=== PATIENT | female | born 1965 | race Caucasian/White ===

== ENCOUNTER 2016-08-30 14:12 | Emergency (ER) | payer MEDICAID, MEDICARE ==
[~2016-08-30] VITALS: Ht 165.1 cm; Wt 97.0 kg
[2016-08-30] MEDS ORDERED: LIDOCAINE 1%, 20ML ONE (15:08)
[2016-08-30] MEDS ORDERED: DIPH,PERTUSS(ACELL),TET VAC/PF 0.5 ML IM-VACC ONE ×2 (15:09→15:30)
[2016-08-30] MEDS ORDERED: ONDANSETRON ODT 4 MG PO ONE (15:30)
[2016-08-30] MEDS ORDERED: LIDOCAINE 1%, 20ML SQ ONE (15:30)
[2016-08-30] MEDS ORDERED: ONDANSETRON ODT 4 MG ONE (15:47)
[2016-08-30] MEDS ORDERED: LORazepam 1MG TABLET ONE (16:09)
[2016-08-30 16:23] VITALS: BP 110/72
[2016-08-30] MEDS ORDERED: LORazepam 1MG TABLET PO ONE (16:30)
== END 2016-08-30 16:36 | disposition home or self-care (01) ==
LOC: ED 16:30
DX: L03.311 Cellulitis of abdominal wall (principal); B35.6 Tinea cruris
CPT/HCPCS: 26010; 73140; 90471; 90715; 99284; Q0162

== ENCOUNTER 2017-01-04 01:35 | Emergency (ER) | payer MEDICARE ==
[~2017-01-04] VITALS: Ht 160 cm; Wt 92.8 kg
[2017-01-04 01:38] VITALS: BP 154/109
[2017-01-04] MEDS ORDERED: LIDOCAINE 1%, 20ML INFIL ONE (02:00)
[2017-01-04] MEDS ORDERED: LIDOCAINE 1%, 20ML ONE (02:01)
== END 2017-01-04 02:55 | disposition home or self-care (01) ==
LOC: ED 02:50
DX: L02.413 Cutaneous abscess of right upper limb (principal)
CPT/HCPCS: 10060; 99283

== ENCOUNTER 2017-04-26 12:18 | Emergency (ER) | payer MEDICARE ==
[~2017-04-26] VITALS: Ht 165.1 cm; Wt 97.7 kg
[2017-04-26 13:29] VITALS: BP 140/83
[2017-04-26] MEDS ORDERED: FLUCONAZOLE 100 MG TABLET PO ONE (13:30)
== END 2017-04-26 14:18 | disposition home or self-care (01) ==
LOC: ED 14:12
DX: L02.416 Cutaneous abscess of left lower limb (principal); L02.415 Cutaneous abscess of right lower limb; L02.414 Cutaneous abscess of left upper limb; L02.413 Cutaneous abscess of right upper limb; B37.9 Candidiasis, unspecified
CPT/HCPCS: 99283

== ENCOUNTER 2017-06-22 13:33 | Inpatient (IN) | payer MEDICARE ==
[~2017-06-22] VITALS: Ht 165.1 cm; Wt 97.8 kg
[2017-06-22] MEDS ORDERED: SODIUM CHLORIDE FLUSH 10ML SYR IVF ONE (14:30)
[2017-06-22] MEDS ORDERED: VANCOMYCIN PER PHARMACY MC ONE (14:30)
[2017-06-22] MEDS ORDERED: SODIUM CHLORIDE 0.9% 1,000ML IVBOLUS ONE (14:30)
[2017-06-22] MEDS ORDERED: PHARMACOKINETIC CONSULTATION MC ONE ×2 (14:30→21:00)
[2017-06-22] MEDS ORDERED: VANCOMYCIN 1,500 MG in SODIUM CHLORIDE 0.9% 250 ML IV ONE (14:30)
[2017-06-22 14:51] LABS: BASOPHILS # (AUTO) 0.03 x10^3/uL (0-0.1); BASOPHILS % (AUTO) 0 % (0-1); EOSINOPHILS % (AUTO) 0 % (1-7); LYMPHOCYTES # (AUTO) 1.09 x10^3/uL (1-3.4); LYMPHOCYTES % (AUTO) 15 % (22-44); MD NO; MEAN CORPUSCULAR HEMOGLOBIN 28.8 pg (27.0-34.8); MEAN CORPUSCULAR HGB CONC 33.7 g/dL (32.4-35.8); MEAN CORPUSCULAR VOLUME 85.5 fL (80-100); MEAN PLATELET VOLUME 8.6 fL (7.4-10.4); MONOCYTES # (AUTO) 0.33 x10^3/uL (0.2-0.8); MONOCYTES % (AUTO) 5 % (2-9); NEUTROPHILS # (AUTO) 5.92 x10^3/uL (1.8-6.8); NEUTROPHILS % (AUTO) 80 % (42-75); PLATELET COUNT 221 x10^3/uL (130-400); RED BLOOD COUNT 3.92 x10^6/uL (3.82-5.3); RED CELL DISTRIBUTION WIDTH 13.8 % (9.6-15.2)
[2017-06-22 15:00] LABS: ALANINE AMINOTRANSFERASE 13 U/L (12-78); ALBUMIN 3.3 g/dL (3.4-5.0); ANION GAP 8 mmol/L (5-15); CALCIUM 8.7 mg/dL (8.5-10.1); CHLORIDE 102 mmol/L (98-107); CREATININE 0.79 mg/dL (0.55-1.02)
[2017-06-22 15:02] LABS: ALKALINE PHOSPHATASE 59 U/L (45-117); BILIRUBIN,TOTAL 0.5 mg/dL (0.2-1.0); TOTAL PROTEIN 7.9 g/dL (6.4-8.2)
[2017-06-22] MEDS ORDERED: QUET50TA5 PO (15:13)
[2017-06-22] MEDS ORDERED: VENL75CA PO (15:13)
[2017-06-22] MEDS ORDERED: CLON1TAB PO (15:13)
[2017-06-22] MEDS ORDERED: TRAZ100T15 PO (15:13)
[2017-06-22] MEDS ORDERED: OMNIPAQUE 350 MG/ML, 100ML BOTTLE ONE (16:52)
[2017-06-22] MEDS ORDERED: POTASSIUM CHLORIDE 20 MEQ TAB.ER.PRT PO ONE (19:00)
[2017-06-22] MEDS ORDERED: POTASSIUM CHLORIDE 20 MEQ TAB.ER.PRT ONE (19:02)
[2017-06-22] MEDS ORDERED: BISACODYL 10 MG SUPP PR PRN (19:30)
[2017-06-22] MEDS ORDERED: CEFTRIAXONE PMX 1GM/50ML 50 ML IV SCH (19:30)
[2017-06-22] MEDS ORDERED: VANCOMYCIN PER PHARMACY MC PRN (19:30)
[2017-06-22] MEDS ORDERED: POLYETHYLENE GLYCOL 17 GM PACKET PO PRN (19:30)
[2017-06-22] MEDS: NICOTINE 14MG/24 HR PATCH.TD24 TD SCH (19:30)
[2017-06-22] MEDS ORDERED: ONDANSETRON 2MG/ML, 2ML IVPush PRN (19:30)
[2017-06-22] MEDS ORDERED: CEFTRIAXONE PMX 1GM/50ML 50 ML ONE (19:45)
[2017-06-22 20:45] VITALS: BP 115/71
[2017-06-22] MEDS ORDERED: CEFTRIAXONE 1,000 MG in SODIUM CHLORIDE 0.9% 50 ML IV SCH (21:00)
[2017-06-22] MEDS ORDERED: PHARMACOKINETIC MONITORING MC PRN (21:00)
[2017-06-22] MEDS: TRAZODONE 100MG TABLET PO SCH (21:34)
[2017-06-22] MEDS: HEPARIN 5,000 UNITS/ML, 1ML SQ SCH (21:35)
[2017-06-22 22:00] VITALS: BP 115/71
[2017-06-22] MEDS: QUETIAPINE 25MG TABLET PO SCH (22:09)
[2017-06-22] MEDS: KETOROLAC 30 MG/1 ML IVPush PRN (22:09)
[2017-06-23 02:05] VITALS: BP 127/80
[2017-06-23] MEDS: VANCOMYCIN 1,500 MG in SODIUM CHLORIDE 0.9% 250 ML IV SCH ×2 (02:53→16:04)
[2017-06-23 05:14] LABS: BASOPHILS # (AUTO) 0.02 x10^3/uL (0-0.1); BASOPHILS % (AUTO) 0 % (0-1); EOSINOPHILS % (AUTO) 0 % (1-7); LYMPHOCYTES # (AUTO) 1.57 x10^3/uL (1-3.4); LYMPHOCYTES % (AUTO) 24 % (22-44); MD NO; MEAN CORPUSCULAR HEMOGLOBIN 29.4 pg (27.0-34.8); MEAN CORPUSCULAR HGB CONC 34.6 g/dL (32.4-35.8); MEAN CORPUSCULAR VOLUME 84.8 fL (80-100); MEAN PLATELET VOLUME 8.4 fL (7.4-10.4); MONOCYTES # (AUTO) 0.49 x10^3/uL (0.2-0.8); MONOCYTES % (AUTO) 8 % (2-9); NEUTROPHILS # (AUTO) 4.47 x10^3/uL (1.8-6.8); NEUTROPHILS % (AUTO) 68 % (42-75); PLATELET COUNT 195 x10^3/uL (130-400); RED BLOOD COUNT 3.91 x10^6/uL (3.82-5.3); RED CELL DISTRIBUTION WIDTH 13.8 % (9.6-15.2)
[2017-06-23 05:17] LABS: ALBUMIN 2.6 g/dL (3.4-5.0); ANION GAP 8 mmol/L (5-15); CALCIUM 8.2 mg/dL (8.5-10.1); CHLORIDE 105 mmol/L (98-107)
[2017-06-23 05:21] LABS: ALANINE AMINOTRANSFERASE 12 U/L (12-78); ALKALINE PHOSPHATASE 55 U/L (45-117); CREATININE 0.71 mg/dL (0.55-1.02); TOTAL PROTEIN 6.6 g/dL (6.4-8.2)
[2017-06-23] MEDS: HEPARIN 5,000 UNITS/ML, 1ML SQ SCH ×3 (05:30→21:19)
[2017-06-23 08:02] VITALS: BP 119/88
[2017-06-23 08:56] VITALS: BP 111/75
[2017-06-23] MEDS: VENLAFAXINE 75 MG CAP ER PO SCH (08:58)
[2017-06-23] MEDS: SENNA/DOCUSATE TABLET PO SCH (08:59)
[2017-06-23] MEDS ORDERED: QUETIAPINE 25MG TABLET PO SCH (09:00)
[2017-06-23] MEDS ORDERED: LORazepam 2 MG/ML, 1ML IVPush ONE (09:30)
[2017-06-23] MEDS: ACETAMINOPHEN 325 MG TABLET PO PRN ×2 (10:01→19:43)
[2017-06-23 14:30] VITALS: BP 125/84
[2017-06-23 18:54] VITALS: BP 124/80
[2017-06-23] MEDS: NICOTINE 14MG/24 HR PATCH.TD24 TD SCH (19:30)
[2017-06-23] MEDS: CEFTRIAXONE 1,000 MG in DEXTROSE 5% 50 ML IV SCH (19:43)
[2017-06-23] MEDS: TRAZODONE 100MG TABLET PO SCH (21:19)
[2017-06-23] MEDS: QUETIAPINE 25MG TABLET PO SCH (21:19)
[2017-06-24 00:41] VITALS: BP 122/71
[2017-06-24] MEDS: VANCOMYCIN 1,500 MG in SODIUM CHLORIDE 0.9% 250 ML IV SCH ×2 (04:20→16:16)
[2017-06-24 04:59] LABS: BASOPHILS # (AUTO) 0.04 x10^3/uL (0-0.1); BASOPHILS % (AUTO) 1 % (0-1); EOSINOPHILS # (AUTO) 0.01 x10^3/uL (0-0.4); EOSINOPHILS % (AUTO) 0 % (1-7); LYMPHOCYTES # (AUTO) 1.92 x10^3/uL (1-3.4); LYMPHOCYTES % (AUTO) 37 % (22-44); MD NO; MEAN CORPUSCULAR HEMOGLOBIN 29.2 pg (27.0-34.8); MEAN CORPUSCULAR HGB CONC 34.3 g/dL (32.4-35.8); MEAN CORPUSCULAR VOLUME 85.3 fL (80-100); MEAN PLATELET VOLUME 8.3 fL (7.4-10.4); MONOCYTES # (AUTO) 0.52 x10^3/uL (0.2-0.8); MONOCYTES % (AUTO) 10 % (2-9); NEUTROPHILS # (AUTO) 2.73 x10^3/uL (1.8-6.8); NEUTROPHILS % (AUTO) 52 % (42-75); PLATELET COUNT 191 x10^3/uL (130-400); RED BLOOD COUNT 3.94 x10^6/uL (3.82-5.3); RED CELL DISTRIBUTION WIDTH 13.6 % (9.6-15.2)
[2017-06-24 05:03] LABS: ANION GAP 7 mmol/L (5-15); CHLORIDE 106 mmol/L (98-107)
[2017-06-24 05:06] LABS: CREATININE 0.63 mg/dL (0.55-1.02)
[2017-06-24] MEDS: HEPARIN 5,000 UNITS/ML, 1ML SQ SCH ×3 (05:56→21:30)
[2017-06-24 08:30] VITALS: BP 131/84
[2017-06-24] MEDS: SENNA/DOCUSATE TABLET PO SCH (09:00)
[2017-06-24] MEDS: VENLAFAXINE 75 MG CAP ER PO SCH (10:16)
[2017-06-24 16:00] VITALS: BP 134/79
[2017-06-24 19:14] VITALS: BP 143/90
[2017-06-24] MEDS: NICOTINE 14MG/24 HR PATCH.TD24 TD SCH (19:30)
[2017-06-24] MEDS: KETOROLAC 30 MG/1 ML IVPush PRN (19:36)
[2017-06-24] MEDS: TRAZODONE 100MG TABLET PO SCH (19:36)
[2017-06-24] MEDS: CEFTRIAXONE 1,000 MG in DEXTROSE 5% 50 ML IV SCH (19:37)
[2017-06-24] MEDS: QUETIAPINE 25MG TABLET PO SCH (19:37)
[2017-06-25 00:50] VITALS: BP 135/62
[2017-06-25] MEDS: VANCOMYCIN 1,500 MG in SODIUM CHLORIDE 0.9% 250 ML IV SCH (04:18)
[2017-06-25] MEDS: HEPARIN 5,000 UNITS/ML, 1ML SQ SCH ×4 (05:30→23:59)
[2017-06-25 07:42] VITALS: BP 144/79
[2017-06-25] MEDS: SENNA/DOCUSATE TABLET PO SCH (09:00)
[2017-06-25] MEDS: CEFDINIR 300 MG CAPSULE PO SCH ×2 (09:32→19:53)
[2017-06-25] MEDS: VENLAFAXINE 75 MG CAP ER PO SCH (09:33)
[2017-06-25] MEDS: POTASSIUM CHLORIDE 20 MEQ TAB.ER.PRT PO SCH ×2 (10:29→16:03)
[2017-06-25 14:50] VITALS: BP 135/82
[2017-06-25] MEDS: NICOTINE 14MG/24 HR PATCH.TD24 TD SCH (19:30)
[2017-06-25 19:49] VITALS: BP 150/97
[2017-06-25] MEDS: QUETIAPINE 25MG TABLET PO SCH (19:53)
[2017-06-25] MEDS: KETOROLAC 30 MG/1 ML IVPush PRN (19:53)
[2017-06-25] MEDS: TRAZODONE 100MG TABLET PO SCH (19:53)
[2017-06-26 02:07] VITALS: BP 107/72
[2017-06-26 05:47] LABS: CHLORIDE 108 mmol/L (98-107)
[2017-06-26 05:55] LABS: ANION GAP 9 mmol/L (5-15); CREATININE 0.69 mg/dL (0.55-1.02)
[2017-06-26 07:07] VITALS: BP 126/77
[2017-06-26] MEDS: VENLAFAXINE 75 MG CAP ER PO SCH (07:49)
[2017-06-26] MEDS: CEFDINIR 300 MG CAPSULE PO SCH (07:49)
[2017-06-26] MEDS ORDERED: NICO-486 TD (07:50)
[2017-06-26] MEDS: SENNA/DOCUSATE TABLET PO SCH (07:50)
[2017-06-26] MEDS ORDERED: CEFD300C37 PO (11:03)
[2017-06-26] MEDS: HEPARIN 5,000 UNITS/ML, 1ML SQ SCH (13:25)
[2017-06-26 13:32] VITALS: BP 110/68
== END 2017-06-26 16:51 | disposition home or self-care (01) | DRG 602 ==
LOC: ED 14:07 → EDIP 18:51 → 3NE 20:34
PROVIDERS: ADMIT Hospitalist; ATTEND Hospitalist
DX: L03.113 Cellulitis of right upper limb (principal); E43 Unspecified severe protein-calorie malnutrition; D64.9 Anemia, unspecified; L02.413 Cutaneous abscess of right upper limb; E87.6 Hypokalemia; F15.10 Other stimulant abuse, uncomplicated; Z88.6 Allergy status to analgesic agent; Z88.0 Allergy status to penicillin; Z68.35 Body mass index [BMI] 35.0-35.9, adult; F17.210 Nicotine dependence, cigarettes, uncomplicated; F31.9 Bipolar disorder, unspecified; Z79.899 Other long term (current) drug therapy; Z86.14 Personal history of Methicillin resistant Staphylococcus aureus infection; Z97.5 Presence of (intrauterine) contraceptive device
CPT/HCPCS: 36415; 80048; 80053; 80202; 83605; 85025; 87040; 87070; 87205; 96365; 96366; 96367; J0696; J1644; J1885; J3370; Q9967; J2060; J7030; J7050

== ENCOUNTER 2017-08-14 15:52 | Emergency (ER) | payer MEDICARE ==
[~2017-08-14] VITALS: Ht 167.6 cm; Wt 89.0 kg
[~2017-08-14 15:52] MED LIST: CEFD300C37 PO; CLON1TAB PO; NICO-486 TD; QUET50TA5 PO; TRAZ100T15 PO; VENL75CA PO
[2017-08-14 16:10] VITALS: BP 105/72
== END 2017-08-14 17:06 | disposition home or self-care (01) ==
LOC: ED 17:00
DX: L03.115 Cellulitis of right lower limb (principal); Z86.14 Personal history of Methicillin resistant Staphylococcus aureus infection
CPT/HCPCS: 99283

== ENCOUNTER 2018-05-14 12:55 | Emergency (ER) | payer MEDICARE ==
[~2018-05-14] VITALS: Ht 165.1 cm; Wt 85.0 kg
[~2018-05-14 12:55] MED LIST changes: +TRAZ-137 PO; -TRAZ100T15 PO
[2018-05-14 14:11] LABS: BASOPHILS # (AUTO) 0.03 x10^3/uL (0-0.1); BASOPHILS % (AUTO) 0 % (0-1); EOSINOPHILS # (AUTO) 0.01 x10^3/uL (0-0.4); EOSINOPHILS % (AUTO) 0 % (1-7); LYMPHOCYTES # (AUTO) 1.99 x10^3/uL (1-3.4); LYMPHOCYTES % (AUTO) 20 % (22-44); MD NO; MEAN CORPUSCULAR HEMOGLOBIN 28.4 pg (27.0-34.8); MEAN CORPUSCULAR HGB CONC 33.2 g/dL (32.4-35.8); MEAN CORPUSCULAR VOLUME 85.5 fL (80-100); MEAN PLATELET VOLUME 8.6 fL (7.4-10.4); MONOCYTES # (AUTO) 0.54 x10^3/uL (0.2-0.8); MONOCYTES % (AUTO) 6 % (2-9); NEUTROPHILS # (AUTO) 7.22 x10^3/uL (1.8-6.8); NEUTROPHILS % (AUTO) 74 % (42-75); PLATELET COUNT 306 x10^3/uL (130-400); RED BLOOD COUNT 4.74 x10^6/uL (3.82-5.3); RED CELL DISTRIBUTION WIDTH 14.3 % (9.6-15.2)
[2018-05-14 14:20] LABS: ANION GAP 5 mmol/L (5-15); CALCIUM 9.1 mg/dL (8.5-10.1); CHLORIDE 104 mmol/L (98-107); CREATININE 0.86 mg/dL (0.55-1.02)
[2018-05-14 14:21] LABS: ALBUMIN 3.5 g/dL (3.4-5.0)
--- NOTE | 2018-05-14 14:52 | NUR ---
PT TO ROOM WITH RN BY WHEELCHAIR. NAD NOTED. FREQUENT COUGH. PT REPORTS COUGH X FIVE DAYS; +GREEN/YELLOW SPUTUM. DENIES FEVER/ORTHOPNEA. HX OF ARDS AND ASTHMA, DOES NOT USE INHALER AT HOME. PT SPEAKING IN FULL SENTENCES, SPO2 >90% ON RA. BP/SPO2 MONITORING IN PLACE. AWAITING FURTHER ORDERS.
[2018-05-14 15:09] VITALS: BP 118/70
--- NOTE | 2018-05-14 15:09 | NUR ---
POC IS BREATHING TX THEN DC. PT AMBULATED STEADILY TO BATHROOM. AWAITING RT FOR TREATMENT
[2018-05-14] MEDS ORDERED: ALBUTEROL/IPRATROPIUM 2.5MG/0.5MG, 3 ML ONE (15:11)
[2018-05-14] MEDS ORDERED: IBUPROFEN 600 MG TABLET ONE (15:16)
[2018-05-14] MEDS ORDERED: BENZONATATE 100 MG CAPSULE ONE (15:16)
--- NOTE | 2018-05-14 15:24 | NUR ---
PT REPORTS IMPROVEMENT IN SOB WITH BREATHING TX. PT MEDICATED PER EMAR.
[2018-05-14] MEDS ORDERED: BENZONATATE 100 MG CAPSULE PO ONE (15:30)
[2018-05-14] MEDS ORDERED: IBUPROFEN 600 MG TABLET PO ONE (15:30)
[2018-05-14] MEDS ORDERED: ALBUTEROL/IPRATROPIUM 2.5MG/0.5MG, 3 ML NPPB ONE (15:30)
--- NOTE | 2018-05-14 15:55 | NUR ---
Patient/Caregiver given discharge instructions and they have confirmed that they understand the instructions. Patient ambulatory with steady gait.
== END 2018-05-14 15:57 | disposition home or self-care (01) ==
LOC: ED 15:51
DX: R05 Cough (principal); F31.9 Bipolar disorder, unspecified; J45.909 Unspecified asthma, uncomplicated; Z87.891 Personal history of nicotine dependence; Z59.0 Homelessness
CPT/HCPCS: 36415; 71046; 80048; 82040; 85025; 93005; 94640; 99284; J7620

== ENCOUNTER 2018-06-01 23:34 | Emergency (ER) | payer MEDICARE ==
[~2018-06-01] VITALS: Ht 165.1 cm; Wt 60.0 kg
[2018-06-01 23:35] VITALS: BP 148/97
--- NOTE | 2018-06-02 | NUR ---
THIS RN ATTEMPTED TO GET URINE SAMPLE FROM PT. PT STARTS SCREAMING AT STAFF AND STATING "YOU ARE JUST ACCUSING ME OF BEING A JUNKIE. YOU ARENT GOING TO TAKE ME FUCKING SERIOUSLY. NO ONE WILL TREAT ME HOW I NEED TO BE TREATED. I NEED TO GET MY MEDICATIONS. IF I DONT GET THEM I AM NOT GOING TO GO BACK OUT THERE. I CANT HANDLE IT OUT THERE ANYMORE. IM JUST GOING TO END IT." PT LOCKED SELF IN BATHROOM AND STARTED SCREAMING AND SLAMMING LID OF TOILET. SECURITY CALLED TO ASSIST GETTING PT OUT OF BATHROOM.
[2018-06-02] MEDS ORDERED: ZIPRASIDONE 20 MG INJ IM ONE ×2 (00:02→00:30)
--- NOTE | 2018-06-02 00:10 | NUR ---
Pt medicated, per JUN, with security assistance. Urine sample obtained and walked to lab.
--- NOTE | 2018-06-02 00:30 | NUR ---
PT MOVED TO ROOM 02 AND GIVEN WARM BLANKETS. INSTRUCTED ON OUR PSYCH POLICIES AND ALL BELONGINGS PUT IN 2 OF 2 PT BELONGINGS BAGS AND LOCKED IN LOCKER. ROLLER DOORS IN PLACE. CHARGE NURSE AWARE OF ESCALATION OF EVENTS.
[2018-06-02 00:35] LABS: AMPHETAMINE SCREEN, URINE Positive (Negative); BARBITURATE SCREEN, URINE Negative (Negative); BENZODIAZEPINE SCREEN, URINE Negative (Negative); CANNABINOID SCREEN, URINE Negative (Negative); COCAINE SCREEN, URINE Negative (Negative); METHADONE SCREEN, URINE Negative (Negative); OPIATE SCREEN, URINE Negative (Negative)
[2018-06-02 00:36] LABS: BASOPHILS # (AUTO) 0.04 x10^3/uL (0-0.1); BASOPHILS % (AUTO) 0 % (0-1); EOSINOPHILS # (AUTO) 0.01 x10^3/uL (0-0.4); EOSINOPHILS % (AUTO) 0 % (1-7); LYMPHOCYTES # (AUTO) 1.97 x10^3/uL (1-3.4); LYMPHOCYTES % (AUTO) 23 % (22-44); MD NO; MEAN CORPUSCULAR HEMOGLOBIN 28.5 pg (27.0-34.8); MEAN CORPUSCULAR HGB CONC 33.7 g/dL (32.4-35.8); MEAN CORPUSCULAR VOLUME 84.6 fL (80-100); MEAN PLATELET VOLUME 8.6 fL (7.4-10.4); MONOCYTES # (AUTO) 0.66 x10^3/uL (0.2-0.8); MONOCYTES % (AUTO) 8 % (2-9); NEUTROPHILS # (AUTO) 5.97 x10^3/uL (1.8-6.8); NEUTROPHILS % (AUTO) 69 % (42-75); PLATELET COUNT 229 x10^3/uL (130-400); RED BLOOD COUNT 4.38 x10^6/uL (3.82-5.3)
[2018-06-02 00:42] LABS: ALBUMIN 3.2 g/dL (3.4-5.0); ANION GAP 6 mmol/L (5-15); CALCIUM 8.4 mg/dL (8.5-10.1); CHLORIDE 107 mmol/L (98-107); CREATININE 0.76 mg/dL (0.55-1.02)
[2018-06-02 00:45] LABS: SALICYLATE LEVEL < 1.7 mg/dL (2.8-20.0)
[2018-06-02 00:46] LABS: ACETAMINOPHEN < 2 mcg/mL (10-30)
--- NOTE | 2018-06-02 00:53 | NUR ---
PT ASKED THIS RN "SO WHAT KIND OF SANDWICHES DO YOU GUYS HAVE AT THE COFFEE CART TONIGHT?" WITHOUT PROMPTING. GIVEN WARM BLANKETS AT THIS TIME.
--- NOTE | 2018-06-02 01:07 | NUR ---
TELEPSYCH INITIATED. [id number] BOT PLACED AT BS.
--- NOTE | 2018-06-02 01:14 | NUR ---
PT RESTING QUIETLY, AWAIT TELEPSYCH EVAL.
--- NOTE | 2018-06-02 02:36 | NUR ---
PT SLEEPING COMFORTABLY ON GURNEY. RR EVEN AND UNLABORED. NADN. ROLLER DOORS IN PLACE.
--- NOTE | 2018-06-02 04:18 | NUR ---
PT SLEEPING COMFORTABLY ON GURNEY. RR EVEN AND UNLABORED. NADN. ROLLER DOORS IN PLACE.
--- NOTE | 2018-06-02 04:41 | NUR ---
SOC CALLED AT THIS TIME. SOC UPDATED ON PT AND TELEPSYCH INITIATED.
== END 2018-06-02 04:58 | disposition home or self-care (01) ==
LOC: ED 06-02 00:10
DX: F22 Delusional disorders (principal); F15.959 Other stimulant use, unspecified with stimulant-induced psychotic disorder, unspecified; J45.909 Unspecified asthma, uncomplicated; F31.9 Bipolar disorder, unspecified; F17.200 Nicotine dependence, unspecified, uncomplicated; Z88.6 Allergy status to analgesic agent; Z88.4 Allergy status to anesthetic agent; Z88.0 Allergy status to penicillin
CPT/HCPCS: 36415; 80048; 80307; 80329; 82040; 85025; 96372; 99283; J3486; G0480

== ENCOUNTER 2018-07-07 03:10 | Emergency (ER) | payer MEDICARE ==
[~2018-07-07] VITALS: Ht 165.1 cm; Wt 99.0 kg
--- NOTE | 2018-07-07 03:28 | NUR ---
pt's belongings have been bagged and tagged and placed in locker, as per ems, pt had 2 knifes on scene. per remsa, pt did not threaten to hurt herself nor say she was si. when pt arrived to ed, this rn asked pt about her knives and pt stated, "don't take them, i need them". explained to pt the knives have to be confiscated for everyones safety. pt did not object to her belongings being locked up. pt being uncooperative with assessment. pt only whispering, stated she is unable to speak due to sore throat. pt c/o neck pain. while palpating pt neck for midline pain, pt slapped this rn's hand away, stating, "i have neck spasms, don't touch me". informed pt there is no need to hit staff. pt became upset and started speaking in full voice, "you don't know what it's like to live with 4 diseases so don't tell me what to fucking do, i tell you what to do". pt asked to calm down, pt sat up and scooted down to foot of bed and stated, "you're being a bitch and you can suck my reta and lick my cunt". this rn left room so pt can calm down. pt remved all monitors, got out of bed and walked to hallway bathroom. house sup and security with pt at this time.
[2018-07-07] MEDS ORDERED: IBUPROFEN 600 MG TABLET ONE (04:48)
[2018-07-07 04:55] VITALS: BP 109/65
[2018-07-07] MEDS ORDERED: IBUPROFEN 600 MG TABLET PO ONE (05:00)
[2018-07-07] MEDS ORDERED: HALO5TAB5 PO (05:05)
--- NOTE | 2018-07-07 05:24 | NUR ---
PT DCd WITH DRY CLOTHING FROM CLOTHING CLOSET, 2 PAIR SOCKS, FOOD FROM ED KITCHEN COFFEE CART CLOSED AND TAXI VOUCHER. PT REQUESTED IBU AND LYRICA FOR HER BACK. ERP ORDERED IBU, WHICH WAS ADMINISTERED. PT BELONGINGS RETURNED. PT NOW REQUESTING SEROQUEL 300. ERP AWARE, PT RECENTLY DCd FROM [facility] WITH PRESCRIPTIONS. PT GIVEN RESOURCE LIST FOR MEDS.
== END 2018-07-07 05:05 | disposition home or self-care (01) ==
LOC: ED 03:37
DX: F15.10 Other stimulant abuse, uncomplicated (principal); Z72.9 Problem related to lifestyle, unspecified; Z59.0 Homelessness; F31.9 Bipolar disorder, unspecified; Z86.14 Personal history of Methicillin resistant Staphylococcus aureus infection
CPT/HCPCS: 99283

== ENCOUNTER 2018-09-28 18:45 | Inpatient (IN) | payer MEDICARE, MEDICAID ==
[~2018-09-28] VITALS: Ht 165.1 cm; Wt 99.2 kg
[~2018-09-28 18:45] MED LIST changes: +HALO5TAB5 PO
[2018-09-28] MEDS ORDERED: DOCUSATE 100 MG CAPSULE PO PRN (19:00)
[2018-09-28] MEDS ORDERED: ONDANSETRON ODT 4 MG PO PRN (19:00)
[2018-09-28] MEDS ORDERED: BISACODYL 10 MG SUPP PR PRN (19:00)
[2018-09-28] MEDS ORDERED: POLYETHYLENE GLYCOL 17 GM PACKET PO PRN (19:00)
[2018-09-28 19:53] VITALS: BP 142/90
[2018-09-28] MEDS: TRAZODONE 100MG TABLET PO SCH (20:57)
[2018-09-28] MEDS: HALOPERIDOL 5 MG TABLET PO SCH (20:57)
[2018-09-28] MEDS: QUETIAPINE 100MG TABLET PO SCH (20:57)
[2018-09-28] MEDS: PREGABALIN 100 MG CAPSULE PO SCH (20:58)
[2018-09-28] MEDS: PRAZOSIN 5 MG CAPSULE PO SCH (20:58)
[2018-09-28] MEDS: QUETIAPINE 25MG TABLET PO SCH (21:00)
[2018-09-29 01:01] VITALS: BP 142/90
[2018-09-29 07:07] LABS: BASOPHILS # (AUTO) 0.02 x10^3/uL (0-0.1); BASOPHILS % (AUTO) 1 % (0-1); EOSINOPHILS % (AUTO) 0 % (1-7); LYMPHOCYTES # (AUTO) 2.04 x10^3/uL (1-3.4); LYMPHOCYTES % (AUTO) 44 % (22-44); MD NO; MEAN CORPUSCULAR HEMOGLOBIN 28.2 pg (27.0-34.8); MEAN CORPUSCULAR HGB CONC 32.8 g/dL (32.4-35.8); MEAN PLATELET VOLUME 7.8 fL (7.4-10.4); MONOCYTES # (AUTO) 0.44 x10^3/uL (0.2-0.8); MONOCYTES % (AUTO) 9 % (2-9); NEUTROPHILS # (AUTO) 2.15 x10^3/uL (1.8-6.8); NEUTROPHILS % (AUTO) 46 % (42-75); PLATELET COUNT 205 x10^3/uL (130-400); RED BLOOD COUNT 4.75 x10^6/uL (3.82-5.3); RED CELL DISTRIBUTION WIDTH 15.4 % (9.6-15.2)
[2018-09-29 07:12] VITALS: BP 139/96
[2018-09-29 07:19] LABS: ALBUMIN 3.8 g/dL (3.4-5.0); ANION GAP 3 mmol/L (5-15); CALCIUM 9.1 mg/dL (8.5-10.1); CHLORIDE 106 mmol/L (98-107)
[2018-09-29 07:22] LABS: MICROSCOPIC NOT IND
[2018-09-29 07:26] LABS: CULTURE INDICATED? NO
[2018-09-29 07:44] LABS: ALANINE AMINOTRANSFERASE 41 U/L (12-78); ALKALINE PHOSPHATASE 87 U/L (45-117); BILIRUBIN,TOTAL 0.2 mg/dL (0.2-1.0); CHOLESTEROL, TOTAL 189 mg/dL (140-239); CREATININE 0.97 mg/dL (0.55-1.02); FREE T4 (FREE THYROXINE) 0.54 ng/dL (0.76-1.46); HDL CHOL % 33 % (28-40); HDL CHOLESTEROL (DIRECT) 63 mg/dL (40-60); LDL CHOLESTEROL,CALCULATED 112 mg/dL (54-169); LDL/HDL RATIO 1.8 (0.5-3.0); TOTAL PROTEIN 7.5 g/dL (6.4-8.2); TRIGLYCERIDES 72 mg/dL (50-200); VLDL CHOLESTEROL 14 mg/dL (0-25)
[2018-09-29] MEDS: VENLAFAXINE XR 37.5MG CAP.ER.24H PO SCH (08:24)
[2018-09-29] MEDS: ACETAMINOPHEN 325 MG TABLET PO PRN ×2 (08:24→12:33)
[2018-09-29] MEDS: HALOPERIDOL 5 MG TABLET PO SCH ×3 (08:24→20:47)
[2018-09-29] MEDS: PREGABALIN 100 MG CAPSULE PO SCH ×2 (08:24→20:47)
[2018-09-29] MEDS: QUETIAPINE 25MG TABLET PO SCH ×2 (08:25→20:45)
[2018-09-29 09:24] LABS: HCT (SEDRATE) 40.9 % (34.6-47.8)
[2018-09-29] MEDS ORDERED: ALBUTEROL/IPRATROPIUM 2.5MG/0.5MG, 3 ML HHN SCH (14:00)
[2018-09-29] MEDS ORDERED: ALBUTEROL/IPRATROPIUM 2.5MG/0.5MG, 3 ML ONE ×2 (14:38→14:40)
[2018-09-29] MEDS ORDERED: ALBUTEROL SULFATE 2.5 MG/3 ML ONE (14:40)
[2018-09-29] MEDS: ALBUTEROL/IPRATROPIUM 2.5MG/0.5MG, 3 ML NPPB SCH ×2 (14:45→20:00)
[2018-09-29] MEDS: GUAIFENESIN 200 MG TABLET PO SCH ×2 (16:33→20:53)
[2018-09-29 19:52] VITALS: BP 131/85
[2018-09-29] MEDS: PRAZOSIN 5 MG CAPSULE PO SCH (20:46)
[2018-09-29] MEDS: QUETIAPINE 100MG TABLET PO SCH (20:46)
[2018-09-29] MEDS: TRAZODONE 100MG TABLET PO SCH (20:47)
[2018-09-30] MEDS: GUAIFENESIN 200 MG TABLET PO SCH ×4 (05:44→20:24)
[2018-09-30] MEDS: LEVOTHYROXINE 75 MCG TABLET PO SCH (05:46)
[2018-09-30] MEDS: ALBUTEROL/IPRATROPIUM 2.5MG/0.5MG, 3 ML NPPB SCH ×4 (07:00→20:00)
[2018-09-30 07:25] VITALS: BP 117/73
[2018-09-30] MEDS: VENLAFAXINE XR 37.5MG CAP.ER.24H PO SCH (08:46)
[2018-09-30] MEDS: HALOPERIDOL 5 MG TABLET PO SCH ×3 (08:46→20:25)
[2018-09-30] MEDS: QUETIAPINE 25MG TABLET PO SCH (08:46)
[2018-09-30] MEDS: PREGABALIN 100 MG CAPSULE PO SCH ×2 (08:46→20:25)
[2018-09-30] MEDS: NICOTINE 7 MG/24 HR PATCH.TD24 TD SCH (13:38)
[2018-09-30 19:43] VITALS: BP 124/78
[2018-09-30] MEDS: QUETIAPINE 100MG TABLET PO SCH (20:25)
[2018-09-30] MEDS: TRAZODONE 100MG TABLET PO SCH (20:25)
[2018-09-30] MEDS: PRAZOSIN 5 MG CAPSULE PO SCH (20:26)
[2018-09-30] MEDS ORDERED: QUETIAPINE 25MG TABLET PO SCH (21:00)
[2018-10-01] MEDS: LEVOTHYROXINE 75 MCG TABLET PO SCH (05:57)
[2018-10-01] MEDS: GUAIFENESIN 200 MG TABLET PO SCH ×4 (05:57→20:15)
[2018-10-01 07:13] VITALS: BP 125/77
[2018-10-01] MEDS: PREGABALIN 100 MG CAPSULE PO SCH ×2 (08:51→20:16)
[2018-10-01] MEDS: VENLAFAXINE XR 37.5MG CAP.ER.24H PO SCH (08:51)
[2018-10-01] MEDS: HALOPERIDOL 5 MG TABLET PO SCH ×3 (08:52→20:15)
[2018-10-01] MEDS: ALBUTEROL/IPRATROPIUM 2.5MG/0.5MG, 3 ML NPPB SCH ×3 (08:55→19:56)
[2018-10-01] MEDS: NICOTINE 7 MG/24 HR PATCH.TD24 TD SCH (11:38)
[2018-10-01] MEDS: QUETIAPINE 100MG TABLET PO SCH ×2 (16:17→20:15)
[2018-10-01 16:26] VITALS: BP 127/85
[2018-10-01 20:00] VITALS: BP 115/68
[2018-10-01] MEDS: TRAZODONE 100MG TABLET PO SCH (20:15)
[2018-10-01] MEDS: PRAZOSIN 5 MG CAPSULE PO SCH (20:16)
[2018-10-02] MEDS: LEVOTHYROXINE 75 MCG TABLET PO SCH (05:44)
[2018-10-02] MEDS: GUAIFENESIN 200 MG TABLET PO SCH ×4 (05:44→20:24)
[2018-10-02 07:12] VITALS: BP 133/79
[2018-10-02] MEDS: HALOPERIDOL 5 MG TABLET PO SCH ×3 (08:48→20:24)
[2018-10-02] MEDS: PREGABALIN 100 MG CAPSULE PO SCH ×2 (08:48→20:23)
[2018-10-02] MEDS: VENLAFAXINE XR 37.5MG CAP.ER.24H PO SCH (08:48)
[2018-10-02] MEDS: QUETIAPINE 100MG TABLET PO SCH ×3 (08:48→20:23)
[2018-10-02] MEDS: ALBUTEROL/IPRATROPIUM 2.5MG/0.5MG, 3 ML NPPB SCH ×3 (09:00→21:00)
[2018-10-02] MEDS: NICOTINE 7 MG/24 HR PATCH.TD24 TD SCH (13:50)
[2018-10-02 16:33] VITALS: BP 129/79
[2018-10-02 19:48] VITALS: BP 124/76
[2018-10-02] MEDS: TRAZODONE 100MG TABLET PO SCH (20:24)
[2018-10-02] MEDS: PRAZOSIN 5 MG CAPSULE PO SCH (20:24)
[2018-10-03] MEDS: GUAIFENESIN 200 MG TABLET PO SCH ×4 (05:57→20:27)
[2018-10-03] MEDS: LEVOTHYROXINE 75 MCG TABLET PO SCH (05:57)
[2018-10-03 06:35] LABS: FREE T4 (FREE THYROXINE) 0.58 ng/dL (0.76-1.46); THYROID STIMULATING HORMONE 4.73 mIU/L (0.358-3.740)
[2018-10-03 07:46] VITALS: BP 121/76
[2018-10-03] MEDS: HALOPERIDOL 5 MG TABLET PO SCH ×3 (08:44→20:27)
[2018-10-03] MEDS: VENLAFAXINE XR 37.5MG CAP.ER.24H PO SCH (08:44)
[2018-10-03] MEDS: PREGABALIN 100 MG CAPSULE PO SCH ×2 (08:44→20:27)
[2018-10-03] MEDS: QUETIAPINE 100MG TABLET PO SCH ×3 (08:50→20:28)
[2018-10-03] MEDS: ALBUTEROL/IPRATROPIUM 2.5MG/0.5MG, 3 ML NPPB SCH ×3 (09:45→21:20)
[2018-10-03] MEDS: NICOTINE 7 MG/24 HR PATCH.TD24 TD SCH (12:56)
[2018-10-03 16:22] VITALS: BP 126/77
[2018-10-03 19:24] VITALS: BP 120/76
[2018-10-03] MEDS: PRAZOSIN 5 MG CAPSULE PO SCH (20:27)
[2018-10-03] MEDS: TRAZODONE 100MG TABLET PO SCH (20:27)
[2018-10-04] MEDS: LEVOTHYROXINE 75 MCG TABLET PO SCH (05:43)
[2018-10-04] MEDS: GUAIFENESIN 200 MG TABLET PO SCH ×4 (05:43→20:24)
[2018-10-04 07:14] VITALS: BP 106/68
[2018-10-04] MEDS: ALBUTEROL/IPRATROPIUM 2.5MG/0.5MG, 3 ML NPPB SCH ×3 (08:13→20:20)
[2018-10-04] MEDS: HALOPERIDOL 5 MG TABLET PO SCH ×3 (09:05→20:24)
[2018-10-04] MEDS: PREGABALIN 100 MG CAPSULE PO SCH ×2 (09:05→20:24)
[2018-10-04] MEDS: VENLAFAXINE XR 37.5MG CAP.ER.24H PO SCH (09:05)
[2018-10-04] MEDS: QUETIAPINE 100MG TABLET PO SCH ×3 (09:09→20:25)
[2018-10-04] MEDS: NICOTINE 7 MG/24 HR PATCH.TD24 TD SCH (12:59)
[2018-10-04 19:47] VITALS: BP 126/77
[2018-10-04] MEDS: TRAZODONE 100MG TABLET PO SCH (20:24)
[2018-10-04] MEDS: PRAZOSIN 5 MG CAPSULE PO SCH (20:24)
[2018-10-05] MEDS: LEVOTHYROXINE 75 MCG TABLET PO SCH (05:44)
[2018-10-05] MEDS: GUAIFENESIN 200 MG TABLET PO SCH ×4 (05:44→20:23)
[2018-10-05 07:25] VITALS: BP 120/73
[2018-10-05] MEDS: ALBUTEROL/IPRATROPIUM 2.5MG/0.5MG, 3 ML NPPB SCH ×3 (08:23→19:07)
[2018-10-05] MEDS: PREGABALIN 100 MG CAPSULE PO SCH ×2 (08:40→20:24)
[2018-10-05] MEDS: HALOPERIDOL 5 MG TABLET PO SCH ×3 (08:40→20:23)
[2018-10-05] MEDS: VENLAFAXINE XR 37.5MG CAP.ER.24H PO SCH (08:40)
[2018-10-05] MEDS: QUETIAPINE 100MG TABLET PO SCH ×3 (08:41→20:22)
[2018-10-05] MEDS: NICOTINE 7 MG/24 HR PATCH.TD24 TD SCH (14:07)
[2018-10-05 19:32] VITALS: BP 119/69
[2018-10-05] MEDS: TRAZODONE 100MG TABLET PO SCH (20:22)
[2018-10-05] MEDS: PRAZOSIN 5 MG CAPSULE PO SCH (20:23)
[2018-10-06] MEDS: LEVOTHYROXINE 75 MCG TABLET PO SCH (06:41)
[2018-10-06] MEDS: GUAIFENESIN 200 MG TABLET PO SCH ×4 (06:41→19:58)
[2018-10-06] MEDS: ALBUTEROL/IPRATROPIUM 2.5MG/0.5MG, 3 ML NPPB SCH ×3 (07:15→20:17)
[2018-10-06 07:32] VITALS: BP 120/76
[2018-10-06] MEDS: VENLAFAXINE XR 37.5MG CAP.ER.24H PO SCH (08:35)
[2018-10-06] MEDS: QUETIAPINE 100MG TABLET PO SCH ×3 (08:36→19:58)
[2018-10-06] MEDS: PREGABALIN 100 MG CAPSULE PO SCH ×2 (08:36→19:58)
[2018-10-06] MEDS: HALOPERIDOL 5 MG TABLET PO SCH ×3 (08:36→19:58)
[2018-10-06] MEDS: NICOTINE 7 MG/24 HR PATCH.TD24 TD SCH (14:13)
[2018-10-06 19:25] VITALS: BP 105/68
[2018-10-06] MEDS: PRAZOSIN 5 MG CAPSULE PO SCH (19:58)
[2018-10-06] MEDS: TRAZODONE 100MG TABLET PO SCH (19:59)
[2018-10-07] MEDS: LEVOTHYROXINE 75 MCG TABLET PO SCH (05:53)
[2018-10-07] MEDS: GUAIFENESIN 200 MG TABLET PO SCH ×4 (05:53→21:00)
[2018-10-07 07:33] VITALS: BP 103/68
[2018-10-07] MEDS: ALBUTEROL/IPRATROPIUM 2.5MG/0.5MG, 3 ML NPPB SCH ×3 (08:00→21:00)
[2018-10-07] MEDS: HALOPERIDOL 5 MG TABLET PO SCH ×3 (08:34→20:12)
[2018-10-07] MEDS: VENLAFAXINE XR 37.5MG CAP.ER.24H PO SCH (08:34)
[2018-10-07] MEDS: PREGABALIN 100 MG CAPSULE PO SCH ×2 (08:34→20:11)
[2018-10-07] MEDS: QUETIAPINE 100MG TABLET PO SCH ×3 (08:37→20:11)
[2018-10-07] MEDS: NICOTINE 7 MG/24 HR PATCH.TD24 TD SCH (13:28)
[2018-10-07 19:33] VITALS: BP 109/69
[2018-10-07] MEDS: TRAZODONE 100MG TABLET PO SCH (20:10)
[2018-10-07] MEDS: PRAZOSIN 5 MG CAPSULE PO SCH (20:12)
[2018-10-08] MEDS: LEVOTHYROXINE 75 MCG TABLET PO SCH (06:14)
[2018-10-08] MEDS: GUAIFENESIN 200 MG TABLET PO SCH ×4 (06:14→19:58)
[2018-10-08] MEDS: ALBUTEROL/IPRATROPIUM 2.5MG/0.5MG, 3 ML NPPB SCH ×3 (07:35→22:26)
[2018-10-08 07:38] VITALS: BP 113/70
[2018-10-08] MEDS: HALOPERIDOL 5 MG TABLET PO SCH ×3 (08:54→19:57)
[2018-10-08] MEDS: PREGABALIN 100 MG CAPSULE PO SCH ×2 (08:54→19:58)
[2018-10-08] MEDS: VENLAFAXINE XR 37.5MG CAP.ER.24H PO SCH (08:54)
[2018-10-08] MEDS: QUETIAPINE 100MG TABLET PO SCH ×3 (08:54→19:57)
[2018-10-08] MEDS: NICOTINE 7 MG/24 HR PATCH.TD24 TD SCH (13:36)
[2018-10-08 19:51] VITALS: BP 126/81
[2018-10-08] MEDS: PRAZOSIN 5 MG CAPSULE PO SCH (19:57)
[2018-10-08] MEDS: TRAZODONE 100MG TABLET PO SCH (19:58)
[2018-10-09] MEDS: GUAIFENESIN 200 MG TABLET PO SCH ×4 (05:43→19:49)
[2018-10-09] MEDS: LEVOTHYROXINE 75 MCG TABLET PO SCH (05:43)
[2018-10-09] MEDS: ALBUTEROL/IPRATROPIUM 2.5MG/0.5MG, 3 ML NPPB SCH ×3 (07:20→21:15)
[2018-10-09 07:39] VITALS: BP 107/67
[2018-10-09 07:40] VITALS: BP 107/67
[2018-10-09] MEDS: HALOPERIDOL 5 MG TABLET PO SCH ×3 (08:24→19:49)
[2018-10-09] MEDS: PREGABALIN 100 MG CAPSULE PO SCH ×2 (08:24→19:49)
[2018-10-09] MEDS: VENLAFAXINE XR 37.5MG CAP.ER.24H PO SCH (08:24)
[2018-10-09] MEDS: QUETIAPINE 100MG TABLET PO SCH ×4 (08:25→19:50)
[2018-10-09] MEDS: NICOTINE 7 MG/24 HR PATCH.TD24 TD SCH (13:25)
[2018-10-09 19:39] VITALS: BP 106/69
[2018-10-09] MEDS: PRAZOSIN 5 MG CAPSULE PO SCH (19:50)
[2018-10-09] MEDS: TRAZODONE 100MG TABLET PO SCH (19:50)
[2018-10-10] MEDS: GUAIFENESIN 200 MG TABLET PO SCH ×4 (06:04→19:57)
[2018-10-10] MEDS: LEVOTHYROXINE 75 MCG TABLET PO SCH (06:04)
[2018-10-10] MEDS: ALBUTEROL/IPRATROPIUM 2.5MG/0.5MG, 3 ML NPPB SCH ×3 (06:50→21:00)
[2018-10-10 07:33] VITALS: BP 108/67
[2018-10-10] MEDS: PREGABALIN 100 MG CAPSULE PO SCH ×2 (08:56→19:57)
[2018-10-10] MEDS: VENLAFAXINE XR 37.5MG CAP.ER.24H PO SCH (08:56)
[2018-10-10] MEDS: QUETIAPINE 100MG TABLET PO SCH ×4 (08:57→19:57)
[2018-10-10] MEDS: HALOPERIDOL 5 MG TABLET PO SCH ×3 (08:58→19:56)
[2018-10-10] MEDS: ACETAMINOPHEN 325 MG TABLET PO PRN (08:58)
[2018-10-10] MEDS: NICOTINE 7 MG/24 HR PATCH.TD24 TD SCH (12:45)
[2018-10-10 19:33] VITALS: BP 112/74
[2018-10-10] MEDS: TRAZODONE 100MG TABLET PO SCH (19:57)
[2018-10-10] MEDS: PRAZOSIN 5 MG CAPSULE PO SCH (19:57)
[2018-10-11] MEDS: GUAIFENESIN 200 MG TABLET PO SCH ×4 (05:41→20:12)
[2018-10-11] MEDS: LEVOTHYROXINE 75 MCG TABLET PO SCH (05:41)
[2018-10-11] MEDS: ALBUTEROL/IPRATROPIUM 2.5MG/0.5MG, 3 ML NPPB SCH ×3 (07:18→21:00)
[2018-10-11 07:47] VITALS: BP 103/65
[2018-10-11] MEDS: VENLAFAXINE XR 37.5MG CAP.ER.24H PO SCH (08:30)
[2018-10-11] MEDS: HALOPERIDOL 5 MG TABLET PO SCH ×3 (08:31→20:12)
[2018-10-11] MEDS: QUETIAPINE 100MG TABLET PO SCH ×4 (08:31→20:11)
[2018-10-11] MEDS: PREGABALIN 100 MG CAPSULE PO SCH ×2 (08:31→20:12)
[2018-10-11] MEDS: NICOTINE 7 MG/24 HR PATCH.TD24 TD SCH (14:23)
[2018-10-11] MEDS: ACETAMINOPHEN 325 MG TABLET PO PRN (15:07)
[2018-10-11] MEDS ORDERED: HALO5TAB5 PO (16:04)
[2018-10-11] MEDS ORDERED: PRAZ5CAP2 PO (16:04)
[2018-10-11] MEDS ORDERED: TRAZ-137 PO (16:04)
[2018-10-11] MEDS ORDERED: NICO-485 TD (16:04)
[2018-10-11] MEDS ORDERED: CLON0.5T11 PO (16:04)
[2018-10-11] MEDS ORDERED: QUET100T PO ×2 (16:04)
[2018-10-11] MEDS ORDERED: LEVO75TA PO (16:04)
[2018-10-11] MEDS ORDERED: VENL37.52 PO (16:04)
[2018-10-11 19:33] VITALS: BP 117/72
[2018-10-11] MEDS: TRAZODONE 100MG TABLET PO SCH (20:11)
[2018-10-11] MEDS: PRAZOSIN 5 MG CAPSULE PO SCH (20:12)
[2018-10-12] MEDS: GUAIFENESIN 200 MG TABLET PO SCH (05:15)
[2018-10-12] MEDS: LEVOTHYROXINE 75 MCG TABLET PO SCH (05:15)
[2018-10-12 07:32] VITALS: BP 106/68
[2018-10-12] MEDS: VENLAFAXINE XR 37.5MG CAP.ER.24H PO SCH (08:36)
[2018-10-12] MEDS: HALOPERIDOL 5 MG TABLET PO SCH (08:36)
[2018-10-12] MEDS: PREGABALIN 100 MG CAPSULE PO SCH (08:36)
[2018-10-12] MEDS: QUETIAPINE 100MG TABLET PO SCH (08:36)
[2018-10-12] MEDS: ALBUTEROL/IPRATROPIUM 2.5MG/0.5MG, 3 ML NPPB SCH (09:00)
== END 2018-10-12 10:40 | disposition home or self-care (01) | DRG 885 ==
LOC: 3E 19:38
PROVIDERS: ADMIT Psychiatry & Neurology Psychosomatic Medicine; ATTEND Psychiatry & Neurology Psychosomatic Medicine
DX: F31.30 Bipolar disorder, current episode depressed, mild or moderate severity, unspecified (principal); J44.1 Chronic obstructive pulmonary disease with (acute) exacerbation; J45.901 Unspecified asthma with (acute) exacerbation; R45.851 Suicidal ideations; F43.10 Post-traumatic stress disorder, unspecified; R45.850 Homicidal ideations; E03.9 Hypothyroidism, unspecified; F17.210 Nicotine dependence, cigarettes, uncomplicated; Z96.21 Cochlear implant status; E66.01 Morbid (severe) obesity due to excess calories; F41.1 Generalized anxiety disorder; G47.00 Insomnia, unspecified; Z79.899 Other long term (current) drug therapy; Z87.11 Personal history of peptic ulcer disease; Z88.0 Allergy status to penicillin; Z88.5 Allergy status to narcotic agent; Z98.891 History of uterine scar from previous surgery
CPT/HCPCS: 36415; 71045; 80053; 80061; 81003; 82140; 82607; 84439; 84443; 85025; 85651; 86592; 93005; 94640; J7613; J7620